=== PATIENT | male | born 1985 | race African-American/Black ===

== ENCOUNTER 2024-09-13 16:12 | Emergency (ER) | payer OTHER ==
[~2024-09-13] VITALS: Ht 190.5 cm; Wt 80.0 kg
[2024-09-13 16:33] VITALS: BP 141/92; PULSE 90; RESP 20; TEMP 98.5; O2SAT 97
== END 2024-09-13 17:44 | disposition home or self-care (01) ==
LOC: EMS 16:12
DX: V49.9XXA Car occupant (driver) (passenger) injured in unspecified traffic accident, initial encounter; Y93.89 Activity, other specified; Y92.89 Other specified places as the place of occurrence of the external cause; Y99.8 Other external cause status
CPT/HCPCS: 72040; 99283